=== PATIENT | male | born 1940 | race Caucasian/White ===

== ENCOUNTER 2022-11-10 11:51 | Emergency (ER) | payer OTHER, SELFPAY ==
[2022-11-10 12:00] VITALS: BP 152/66; PULSE 81; RESP 16; TEMP 36.8; O2SAT 99
--- NOTE | 2022-11-10 12:25 | ED.GENADULT ---
HPI - General Adult General Chief complaint: Unspecified Stated complaint: hallucination Time Seen by Provider: 11/10/22 12:22 Source: patient, family, RN notes reviewed and old records reviewed Mode of arrival: ambulatory Limitations: no limitations History of Present Illness HPI narrative: 82 year old male accompanied by son with patient to express care. Patient reporting that 2--3 nights ago he had 5 kids in his house for 2 nights and they didn't speak [place] and he tried to communicate with them. He states that he called the police. Son reports that he stayed with his father last night and no one was in the house and brought him here today to have his urine checked, concerned he has UTI that could be causing these hallucinations. Patient denies any dizziness, fevers or chills,chest pain or headaches, reports that he is eating and drinking well. Patient denies any use of tobacco or alcohol. Patient is adamant that he will not go to the emergency room. Patient does state history of previous need for blood transfusion but reports never found where he was loosing blood. MD complaint: hallucinations Onset (ago): day(s) (3 days ago) Treatments prior to arrival: none Related Data Home Medications Medication Instructions Recorded Confirmed atorvastatin 20 mg tablet 20 mg PO DAILY 11/10/22 11/10/22 carvedilol 12.5 mg tablet 12.5 mg PO BID 11/10/22 11/10/22 lisinopril 10 mg tablet 10 mg PO DAILY 11/10/22 11/10/22 pantoprazole 40 mg tablet,delayed 40 mg PO BID 11/10/22 11/10/22 release Allergies Allergy/AdvReac Type Severity Reaction Status Date / Time No Known Allergies Allergy Unverified 11/10/22 11:54 Review of Systems Review of Systems: CONSTITUTIONAL: Denies fever, chills, or sweats. EYES: Denies visual changes, redness, or discharge. ENT: Denies rhinorrhea, congestion, sore throat, or otalgia. CARDIOVASCULAR: Denies chest pain, palpitations, or edema. RESPIRATORY: Denies cough or dyspnea. GASTROINTESTINAL: Denies abdominal pain, nausea, vomiting, or diarrhea. GENITOURINARY: Denies dysuria or hematuria. SKIN: Denies rash or itching. MUSCULOSKELETAL: Denies back pain, joint pain, or myalgia. NEUROLOGIC: Denies headache, numbness, or weakness. PSYCHIATRIC: Denies anxiety or depression. All systems reviewed & are unremarkable except as noted in HPI and below PMFSH Past Medical History Medical History (Updated 11/11/22 @ 09:58 by Linda Blackmon NP) Elevated cholesterol Emphysema lung GERD (gastroesophageal reflux disease) Hypertension Inferior VA BRANDY (obstructive sleep apnea) Trauma of toe of right foot age 35 Surgical History Surgical History (Updated 11/11/22 @ 09:58 by Linda Blackmon NP) History of carpal tunnel release History of heart artery stent Family History Family History Father Family history of lung cancer Sibling Family history of heart disease in male family member before age 55 Social History Social History (Updated 11/11/22 @ 09:27 by Linda Blackmon NP) Smoking status: Former smoker Smoking end date: 09/10/04 Alcohol intake: former Alcohol use details: reports no alcohol use since 2004 Substance use: never Living arrangements: alone Occupation/Education: retired Gender identity (if verbalized by the patient): Male Comments At time of signature, agree with nursing past medical, surgical, social and family history. There is no relevant family history pertinent to the presenting complaint Exam Narrative: GENERAL: Well-appearing, well-nourished, and in no acute distress. HEAD: Normocephalic, atraumatic. EYES: PERRLA and EOMI. ENT: Nares clear, no rhinorrhea or epistaxis. Mucous membranes moist.TM's normal, throat pink with no lesions or exudates NECK: Supple.no lymphadenopathy CHEST: Clear to auscultation. No respiratory distress.SAO2 99% on room air HEART: Regular rate and rhythm. No murmur heard
--- NOTE | 2022-11-10 13:09 | PC.NURSE ---
1240 noted pt refused to go to er as provider requests. observed at times increase anxiety and refusing to answer some questions during stay.
== END 2022-11-10 12:40 | disposition left against medical advice (07) ==
PROVIDERS: Emergency Provider Registered Nurse; PCP Family Medicine
DX: R44.1 Visual hallucinations (principal); I34.1 Nonrheumatic mitral (valve) prolapse; J43.9 Emphysema, unspecified; K21.9 Gastro-esophageal reflux disease without esophagitis
CPT/HCPCS: 81003; 87086; 99203; G0463